=== PATIENT | male | born 1950 | race Caucasian/White ===

== ENCOUNTER 2020-04-26 17:44 | Emergency (ER) | payer MEDICARE ==
[~2020-04-26] VITALS: Ht 182.9 cm; Wt 93.2 kg
[2020-04-26] MEDS ORDERED: acetaminophen 325mg tablet PO ONE (18:55)
[2020-04-26] MEDS ORDERED: LIDOcaine 1% W/epiNEPHrine 1:200,000 10ml vial IJ ONE (21:45)
[2020-04-26] MEDS ORDERED: TETanus/Pertussis (Acell)/Diphther VAC/PF (Tdap-Adult) 0.5ml syringe IMVAC ONE (21:45)
[2020-04-26] MEDS ORDERED: bacitracin 15gm ointment TP ONE (21:45)
[2020-04-26] MEDS ORDERED: ONDA4TAB6 PO (22:09)
[2020-04-26] MEDS ORDERED: HYDR-3965 PO (22:09)
[2020-04-26] MEDS ORDERED: HYDROcodone/acetaminophen 5mg/325mg tablet PO ONE (22:15)
[2020-04-26] MEDS ORDERED: ondansetron 4mg rapidly disintigrating tab PO ONE (22:15)
[2020-04-26 22:47] VITALS: BP 176/104
== END 2020-04-26 22:48 | disposition home or self-care (01) ==
LOC: ER 17:46
DX: S02.642A Fracture of ramus of left mandible, initial encounter for closed fracture (principal); S02.641A Fracture of ramus of right mandible, initial encounter for closed fracture; S01.81XA Laceration without foreign body of other part of head, initial encounter; R68.84 Jaw pain; Z20.3 Contact with and (suspected) exposure to rabies; Z98.890 Other specified postprocedural states; Z79.899 Other long term (current) drug therapy; W01.0XXA Fall on same level from slipping, tripping and stumbling without subsequent striking against object, initial encounter; Y93.89 Activity, other specified; Y92.89 Other specified places as the place of occurrence of the external cause; Y99.8 Other external cause status
CPT/HCPCS: 12011; 70450; 70486; 90471; 90715; 99285